=== PATIENT | female | born 1990 | race Caucasian/White ===

== ENCOUNTER 2017-05-19 12:22 | Emergency (ER) | payer BC, OTHER ==
[2017-05-19 12:34] VITALS: BP 141/82; PULSE 75; RESP 20; TEMP 98.4; O2SAT 97
--- NOTE | 2017-05-19 13:39 | ED PDOC ---
HPI: Psych/Substance Abuse Time Seen by Provider: 05/19/17 13:06 Chief Complaint (Nursing): Psychiatric Evaluation Chief Complaint (Provider): Depression History Per: Patient History/Exam Limitations: no limitations Onset/Duration Of Symptoms: Days Additional Complaint(s): 26 yo female with history of depression presents with worsening depression over the last few months. PT states her brother (30 yo) was hit by a bus 6 months ago and her mother is having a very difficult time. PT states she feels like she has to be strong for her. PT also reports her older sister being diagnosed with lupus and her father loosing his job. Pt tearful in ER. Pt is no longer taking medications for depression. Past Medical History Reviewed: Historical Data, Nursing Documentation, Vital Signs Vital Signs: Last Vital Signs Temp 98.4 F 05/19/17 12:31 Pulse 75 05/19/17 12:31 Resp 20 05/19/17 12:31 BP 141/82 05/19/17 12:31 Pulse Ox 97 05/19/17 12:31 - Medical History PMH: No Chronic Diseases - Surgical History Surgical History: No Surg Hx - Family History Family History: States: No Known Family Hx - Living Arrangements Living Arrangements: With Family - Social History Current smoker - smoking cessation education provided: No - Allergies Allergies/Adverse Reactions: Allergies Allergy/AdvReac Type Severity Reaction Status Date / Time almond Allergy RASH Verified 05/19/17 12:31 enriquez Allergy RASH Verified 05/19/17 12:31 pineapple Allergy SWELLING Verified 05/19/17 12:31 strawberry Allergy RASH Verified 05/19/17 12:31 Review of Systems ROS Statement: Except As Marked, All Systems Reviewed And Found Negative Constitutional: Negative for: Fever, Chills Cardiovascular: Negative for: Chest Pain Respiratory: Negative for: Cough, Shortness of Breath Physical Exam - Reviewed Nursing Documentation Reviewed: Yes Vital Signs Reviewed: Yes - Physical Exam Appears: Positive for: Well, Non-toxic, No Acute Distress Head Exam: Positive for: ATRAUMATIC, NORMAL INSPECTION, NORMOCEPHALIC Skin: Positive for: Normal Color, Warm, DRY Eye Exam: Positive for: Normal appearance ENT: Positive for: Normal ENT Inspection Neck: Positive for: Normal, Painless ROM Cardiovascular/Chest: Positive for: Regular Rate, Rhythm Respiratory: Positive for: Normal Breath Sounds. Negative for: Accessory Muscle Use, Respiratory Distress Back: Positive for: Normal Inspection Extremity: Positive for: Normal ROM Neurologic/Psych: Positive for: Alert, Oriented - ECG O2 Sat by Pulse Oximetry: 97 Disposition - Clinical Impression Clinical Impression: Adjustment disorder with depressed mood - Disposition Disposition: Routine/Home Disposition Time: 14:47 Condition: GOOD Instructions: Adjustment Disorder Forms: [facility] (Hungarian)
== END 2017-05-19 14:59 | disposition home or self-care (01) ==
LOC: H.ER 12:22
DX: F43.21 Adjustment disorder with depressed mood (principal)